=== PATIENT | female | born 1980 | race African-American/Black ===

== ENCOUNTER 2017-01-15 08:23 | Inpatient (IN) | payer MEDICAID ==
[~2017-01-15] VITALS: Ht 162.6 cm; Wt 77.0 kg
[2017-01-15] MEDS ORDERED: LORazepam 2 MG/ML, 1ML ONE (08:59)
[2017-01-15] MEDS ORDERED: SODIUM CHLORIDE 0.9% 1,000ML IVBOLUS ONE (09:00)
[2017-01-15] MEDS ORDERED: SODIUM CHLORIDE FLUSH 10ML SYR IVF ONE (09:00)
[2017-01-15] MEDS ORDERED: LORazepam 2 MG/ML, 1ML IVPush ONE (09:00)
[2017-01-15 09:17] LABS: HEMATOCRIT 34.3 % (34.6-47.8); HEMOGLOBIN 11.7 g/dL (11.7-16.4)
[2017-01-15 09:28] LABS: BLOOD UREA NITROGEN 9 mg/dL (7-18)
[2017-01-15 09:38] LABS: IS PT STATUS REG ER OR PRE ER? YES
[2017-01-15] MEDS ORDERED: OMNIPAQUE 350 MG/ML, 100ML BOTTLE ONE (09:55)
[2017-01-15] MEDS ORDERED: FUROSEMIDE 20 MG/2 ML ONE (11:42)
[2017-01-15] MEDS ORDERED: FUROSEMIDE 20 MG/2 ML IV ONE (12:00)
[2017-01-15 12:06] VITALS: BP 139/106
[2017-01-15] MEDS ORDERED: LISINOPRIL 5 MG TABLET PO ONE (12:30)
[2017-01-15 13:23] LABS: BLOOD UREA NITROGEN 8 mg/dL (7-18)
[2017-01-15] MEDS ORDERED: ACETAMINOPHEN 325 MG TABLET PO PRN (13:30)
[2017-01-15] MEDS ORDERED: hydrALAzine 20 MG/ML, 1ML IVPush PRN (13:30)
[2017-01-15] MEDS ORDERED: DOCUSATE 100 MG CAPSULE PO PRN (13:30)
[2017-01-15 15:03] LABS: DAU SCREEN DISCLAIMER
[2017-01-15 15:09] LABS: PATH.CAST-FLAG NOT PRESENT; SPERM-FLAG NOT PRESENT; SRC-FLAG NOT PRESENT; XTAL-FLAG NOT PRESENT; YLC-FLAG NOT PRESENT
[2017-01-15] MEDS ORDERED: CARVEDILOL 3.125 MG TABLET PO SCH (18:00)
[2017-01-16] MEDS ORDERED: FUROSEMIDE 20 MG/2 ML IV SCH (09:00)
== END 2017-01-15 15:12 | disposition left against medical advice (07) | DRG 776 ==
LOC: ED 09:07 → EDIP 11:54 → UNDOADMIN 12:25 → 5SO 14:06
PROVIDERS: ADMIT Family Medicine; ATTEND Family Medicine
DX: O99.43 Diseases of the circulatory system complicating the puerperium (principal); I50.21 Acute systolic (congestive) heart failure; O90.3 Peripartum cardiomyopathy; E87.2 Acidosis; E44.0 Moderate protein-calorie malnutrition; O99.325 Drug use complicating the puerperium; F12.90 Cannabis use, unspecified, uncomplicated; O99.335 Smoking (tobacco) complicating the puerperium; F17.200 Nicotine dependence, unspecified, uncomplicated; O99.285 Endocrine, nutritional and metabolic diseases complicating the puerperium; O90.89 Other complications of the puerperium, not elsewhere classified; O25.3 Malnutrition in the puerperium; R59.0 Localized enlarged lymph nodes; Z82.49 Family history of ischemic heart disease and other diseases of the circulatory system; Z98.51 Tubal ligation status; Z68.29 Body mass index [BMI] 29.0-29.9, adult
CPT/HCPCS: 36415; 71275; 80048; 80307; 81001; 82040; 83735; 83880; 84436; 84443; 84481; 84484; 85025; 87086; 93005; 93306; 96361; 96374; 96375; Q9967; G0479; J1940; J2060; J7030

== ENCOUNTER 2017-01-18 05:24 | Emergency (ER) | payer MEDICAID ==
[~2017-01-18] VITALS: Ht 162.6 cm; Wt 80.0 kg
[2017-01-18] MEDS ORDERED: CEPH-376 PO (06:07)
[2017-01-18 06:16] LABS: HEMOGLOBIN 12.1 g/dL (11.7-16.4); WHITE BLOOD COUNT 6.4 x10^3/uL (3.4-10)
[2017-01-18 06:23] LABS: BLOOD UREA NITROGEN 16 mg/dL (7-18)
[2017-01-18 06:31] LABS: IS PT STATUS REG ER OR PRE ER? YES
[2017-01-18 08:03] VITALS: BP 128/98
== END 2017-01-18 08:06 | disposition home or self-care (01) ==
LOC: ED 05:41
DX: O90.3 Peripartum cardiomyopathy (principal); O99.335 Smoking (tobacco) complicating the puerperium; F17.200 Nicotine dependence, unspecified, uncomplicated
CPT/HCPCS: 36415; 71010; 80048; 82040; 83880; 84484; 85025; 93005; 99285

== ENCOUNTER 2017-01-24 01:32 | Emergency (ER) | payer MEDICAID ==
[~2017-01-24] VITALS: Ht 162.6 cm; Wt 77.0 kg
[~2017-01-24 01:32] MED LIST: CEPH-376 PO
[2017-01-24] MEDS ORDERED: CARV3.1212 PO ×2 (01:37→10:03)
[2017-01-24] MEDS ORDERED: LISI2.5T PO (01:37)
[2017-01-24] MEDS ORDERED: FURO40TA6 PO (01:43)
[2017-01-24] MEDS ORDERED: POTA20PA25 PO (01:51)
[2017-01-24 02:05] LABS: HEMATOCRIT 34.9 % (34.6-47.8); HEMOGLOBIN 11.8 g/dL (11.7-16.4); WHITE BLOOD COUNT 7.1 x10^3/uL (3.4-10)
[2017-01-24 02:12] LABS: ASPARTATE AMINO TRANSFERASE 33 U/L (15-37); BLOOD UREA NITROGEN 20 mg/dL (7-18)
[2017-01-24 02:16] LABS: IS PT STATUS REG ER OR PRE ER? YES
[2017-01-24] MEDS ORDERED: FUROSEMIDE 40 MG/4 ML IV ONE ×2 (02:30→09:30)
[2017-01-24] MEDS ORDERED: FUROSEMIDE 40 MG/4 ML ONE ×3 (02:31→09:49)
[2017-01-24] MEDS ORDERED: ENOXAPARIN 40 MG/0.4 ML SQ SCH (04:00)
[2017-01-24] MEDS ORDERED: ACETAMINOPHEN 325 MG TABLET PO PRN (04:00)
[2017-01-24] MEDS ORDERED: ZOLPIDEM 5MG TABLET PO PRN (04:00)
[2017-01-24] MEDS ORDERED: hydrALAzine 20 MG/ML, 1ML IVPush PRN (04:00)
[2017-01-24] MEDS ORDERED: ONDANSETRON 2MG/ML, 2ML IVPush PRN (04:00)
[2017-01-24] MEDS ORDERED: morphine SULFATE 10 MG/ML, 1ML IVPush PRN (04:00)
[2017-01-24] MEDS ORDERED: ENOXAPARIN 40 MG/0.4 ML ONE (04:49)
[2017-01-24 05:12] VITALS: BP 124/89
[2017-01-24 08:18] LABS: IS PT STATUS REG ER OR PRE ER? YES
[2017-01-24] MEDS ORDERED: SODIUM CHLORIDE FLUSH 10ML SYR IVF SCH (09:00)
[2017-01-24] MEDS ORDERED: LISINOPRIL 5 MG TABLET PO SCH (09:00)
[2017-01-24] MEDS ORDERED: POTASSIUM CHLORIDE 20 MEQ PACKET PO SCH (09:00)
[2017-01-24] MEDS ORDERED: CARVEDILOL 3.125 MG TABLET PO SCH (09:00)
[2017-01-24] MEDS ORDERED: FUROSEMIDE 40 MG TABLET PO SCH (09:00)
[2017-01-24] MEDS ORDERED: POTASSIUM CHLORIDE 20 MEQ TAB.ER.PRT PO ONE (09:30)
[2017-01-24] MEDS ORDERED: POTASSIUM CHLORIDE 20 MEQ TAB.ER.PRT ONE (09:50)
[2017-01-24] MEDS ORDERED: CARVEDILOL 3.125 MG TABLET PO ONE (12:00)
[2017-01-24] MEDS ORDERED: CARVEDILOL 6.25 MG TABLET PO SCH (21:00)
[2017-01-25] MEDS ORDERED: LISINOPRIL 5 MG TABLET PO SCH (09:00)
== END 2017-01-24 11:57 | disposition home or self-care (01) ==
LOC: ED 01:49 → EDIP 02:37 → UNDOADMIN 02:37 → ED 11:57
DX: I50.9 Heart failure, unspecified (principal); Z53.9 Procedure and treatment not carried out, unspecified reason
CPT/HCPCS: 36415; 71010; 80053; 83880; 84484; 85025; 93005; 96372; 96374; 96376; 99285; J1650; J1940

== ENCOUNTER 2017-03-12 05:07 | Emergency (ER) | payer MEDICAID ==
[~2017-03-12] VITALS: Ht 165.1 cm; Wt 78.0 kg
[~2017-03-12 05:07] MED LIST changes: +CARV3.1212 PO; +FURO40TA6 PO; +LISI2.5T PO; +POTA20PA25 PO
[2017-03-12 05:10] VITALS: BP 128/86
[2017-03-12 05:55] LABS: RAPID INFLUENZA A Negative (Negative); RAPID INFLUENZA B Negative (Negative)
[2017-03-12] MEDS ORDERED: HYDROmorphone 2 MG/ML, 1ML ONE (06:34)
== END 2017-03-12 06:43 | disposition home or self-care (01) ==
LOC: ED 06:09
DX: B96.89 Other specified bacterial agents as the cause of diseases classified elsewhere (principal); J20.8 Acute bronchitis due to other specified organisms; I50.9 Heart failure, unspecified; I11.0 Hypertensive heart disease with heart failure
CPT/HCPCS: 71045; 87400; 99285

== ENCOUNTER 2017-03-19 02:39 | Emergency (ER) | payer MEDICAID ==
[~2017-03-19] VITALS: Ht 152.4 cm; Wt 78.0 kg
[2017-03-19] MEDS ORDERED: SODIUM CHLORIDE FLUSH 10ML SYR IVF ONE (03:00)
[2017-03-19] MEDS ORDERED: LORazepam 1MG TABLET ONE ×2 (03:21→04:08)
[2017-03-19 03:25] LABS: BASOPHILS # (AUTO) 0.21 x10^3/uL (0-0.1); BASOPHILS % (AUTO) 3 % (0-1); EOSINOPHILS # (AUTO) 0.03 x10^3/uL (0-0.4); EOSINOPHILS % (AUTO) 0 % (1-7); LYMPHOCYTES # (AUTO) 2.58 x10^3/uL (1-3.4); LYMPHOCYTES % (AUTO) 31 % (22-44); MD NO; MEAN CORPUSCULAR HEMOGLOBIN 30.4 pg (27.0-34.8); MEAN CORPUSCULAR HGB CONC 33.3 g/dL (32.4-35.8); MEAN CORPUSCULAR VOLUME 91.5 fL (80-100); MEAN PLATELET VOLUME 9.5 fL (7.4-10.4); MONOCYTES # (AUTO) 0.54 x10^3/uL (0.2-0.8); MONOCYTES % (AUTO) 7 % (2-9); NEUTROPHILS # (AUTO) 4.89 x10^3/uL (1.8-6.8); NEUTROPHILS % (AUTO) 59 % (42-75); PLATELET COUNT 415 x10^3/uL (130-400); RED BLOOD COUNT 3.94 x10^6/uL (3.82-5.3); RED CELL DISTRIBUTION WIDTH 17.2 % (9.6-15.2)
[2017-03-19] MEDS ORDERED: LORazepam 1MG TABLET PO ONE ×2 (03:30→04:00)
[2017-03-19 03:32] LABS: ALANINE AMINOTRANSFERASE 122 U/L (12-78); ALBUMIN 2.9 g/dL (3.4-5.0); ANION GAP 9 mmol/L (5-15); CALCIUM 8.2 mg/dL (8.5-10.1); CHLORIDE 108 mmol/L (98-107); CREATININE 1.16 mg/dL (0.55-1.02)
[2017-03-19 03:36] LABS: ALKALINE PHOSPHATASE 113 U/L (45-117); BILIRUBIN,TOTAL 0.8 mg/dL (0.2-1.0); TOTAL PROTEIN 6.6 g/dL (6.4-8.2)
[2017-03-19 03:54] LABS: TROPONIN I 0.275 ng/mL (0.000-0.045)
[2017-03-19] MEDS ORDERED: FUROSEMIDE 20 MG/2 ML IV ONE (04:00)
[2017-03-19] MEDS ORDERED: ASPIRIN 81 MG TABLET CHEW PO ONE (04:00)
[2017-03-19] MEDS ORDERED: ASPIRIN 81 MG TABLET CHEW ONE (04:08)
[2017-03-19] MEDS ORDERED: FUROSEMIDE 20 MG/2 ML ONE ×2 (04:08→10:11)
[2017-03-19] MEDS ORDERED: GUAIFENESIN/DM 200-20MG, 10ML UDC PO PRN (05:30)
[2017-03-19] MEDS ORDERED: ACETAMINOPHEN 325 MG TABLET PO PRN (05:30)
[2017-03-19] MEDS ORDERED: ENOXAPARIN 40 MG/0.4 ML SQ SCH (05:30)
[2017-03-19] MEDS ORDERED: methylPREDNISolone SOD SUCC 40 MG/ML IV SCH (05:30)
[2017-03-19] MEDS ORDERED: ONDANSETRON 2MG/ML, 2ML IVPush PRN (05:30)
[2017-03-19 06:06] LABS: TROPONIN I 0.236 ng/mL (0.000-0.045)
[2017-03-19] MEDS ORDERED: FUROSEMIDE 20 MG/2 ML IV SCH (07:30)
[2017-03-19 09:00] VITALS: BP 127/96
[2017-03-19] MEDS ORDERED: CARVEDILOL 6.25 MG TABLET PO SCH (09:00)
[2017-03-19] MEDS ORDERED: SPIRONOLACTONE 25 MG TABLET PO SCH (09:00)
[2017-03-19] MEDS ORDERED: LISINOPRIL 5 MG TABLET PO SCH (09:00)
[2017-03-19] MEDS ORDERED: ENOXAPARIN 40 MG/0.4 ML ONE (10:11)
== END 2017-03-19 11:06 | disposition left against medical advice (07) ==
LOC: ED 03:37 → EDIP 03:54 → UNDOADMIN 03:54 → ED 11:06
DX: I50.21 Acute systolic (congestive) heart failure (principal); I21.9 Acute myocardial infarction, unspecified; J40 Bronchitis, not specified as acute or chronic; F41.9 Anxiety disorder, unspecified; Z87.891 Personal history of nicotine dependence; Z91.14 Patient's other noncompliance with medication regimen
CPT/HCPCS: 36415; 71045; 80053; 83880; 84484; 85025; 93005; 93306; 96372; 96374; 96376; 99285; J1650; J1940

== ENCOUNTER 2017-05-21 14:21 | Emergency (ER) | payer MEDICAID ==
[~2017-05-21] VITALS: Ht 162.6 cm; Wt 77.1 kg
[2017-05-21] MEDS ORDERED: SODIUM CHLORIDE FLUSH 10ML SYR IVF ONE (15:00)
[2017-05-21 15:48] LABS: ALBUMIN 2.7 g/dL (3.4-5.0); ANION GAP 10 mmol/L (5-15); CALCIUM 8.2 mg/dL (8.5-10.1); CHLORIDE 107 mmol/L (98-107)
[2017-05-21 15:54] LABS: ALANINE AMINOTRANSFERASE 128 U/L (12-78); ALKALINE PHOSPHATASE 83 U/L (45-117); BASOPHILS # (AUTO) 0.05 x10^3/uL (0-0.1); BASOPHILS % (AUTO) 1 % (0-1); BILIRUBIN,TOTAL 1.3 mg/dL (0.2-1.0); CREATININE 1.25 mg/dL (0.55-1.02); EOSINOPHILS # (AUTO) 0.03 x10^3/uL (0-0.4); EOSINOPHILS % (AUTO) 0 % (1-7); LYMPHOCYTES % (AUTO) 36 % (22-44); MD MORPH REVIEW ONLY; MEAN CORPUSCULAR HEMOGLOBIN 29.1 pg (27.0-34.8); MEAN CORPUSCULAR HGB CONC 32.8 g/dL (32.4-35.8); MEAN CORPUSCULAR VOLUME 88.7 fL (80-100); MONOCYTES # (AUTO) 0.32 x10^3/uL (0.2-0.8); MONOCYTES % (AUTO) 5 % (2-9); NEUTROPHILS # (AUTO) 3.48 x10^3/uL (1.8-6.8); NEUTROPHILS % (AUTO) 57 % (42-75); PLATELET COUNT 240 x10^3/uL (130-400); RED BLOOD COUNT 3.67 x10^6/uL (3.82-5.3); RED CELL DISTRIBUTION WIDTH 19.5 % (9.6-15.2); TOTAL PROTEIN 6.3 g/dL (6.4-8.2); TROPONIN I 0.025 ng/mL (0.000-0.045)
[2017-05-21 15:58] LABS: ANISOCYTOSIS 2+; MICROCYTOSIS 1+; POLYCHROMASIA 1+
[2017-05-21 15:59] LABS: <PLATELET ESTIMATE> ADEQUATE; LARGE PLATELETS 1+; OVALOCYTES 3+; SCHISTOCYTES 1+
[2017-05-21 16:00] LABS: SPHEROCYTES 1+
[2017-05-21] MEDS ORDERED: LORazepam 1MG TABLET ONE (16:50)
[2017-05-21] MEDS ORDERED: LORazepam 1MG TABLET PO ONE (17:00)
[2017-05-21 17:21] VITALS: BP 135/89
== END 2017-05-21 17:23 | disposition home or self-care (01) ==
LOC: ED 15:32
DX: I50.32 Chronic diastolic (congestive) heart failure (principal); R60.0 Localized edema; F41.9 Anxiety disorder, unspecified; I25.2 Old myocardial infarction; F17.210 Nicotine dependence, cigarettes, uncomplicated
CPT/HCPCS: 36415; 71046; 80053; 83880; 84484; 85025; 93005; 99285

== ENCOUNTER 2017-08-12 03:19 | Emergency (ER) | payer MEDICAID ==
[~2017-08-12] VITALS: Ht 162.6 cm; Wt 70.0 kg
[2017-08-12] MEDS ORDERED: SODIUM CHLORIDE FLUSH 10ML SYR IVF ONE (04:00)
[2017-08-12 04:12] LABS: ALBUMIN 2.8 g/dL (3.4-5.0); ANION GAP 10 mmol/L (5-15); CALCIUM 8.7 mg/dL (8.5-10.1); CHLORIDE 108 mmol/L (98-107)
[2017-08-12 04:15] LABS: MEAN CORPUSCULAR VOLUME 90.8 fL (80-100); MEAN PLATELET VOLUME 10.2 fL (7.4-10.4); PLATELET COUNT 261 x10^3/uL (130-400); RED BLOOD COUNT 4.26 x10^6/uL (3.82-5.3); RED CELL DISTRIBUTION WIDTH 21.5 % (9.6-15.2)
[2017-08-12 04:18] LABS: ALANINE AMINOTRANSFERASE 31 U/L (12-78); ALKALINE PHOSPHATASE 88 U/L (45-117); BILIRUBIN,TOTAL 2.1 mg/dL (0.2-1.0); TOTAL PROTEIN 7.2 g/dL (6.4-8.2); TROPONIN I < 0.015 ng/mL (0.000-0.045)
[2017-08-12] MEDS ORDERED: FUROSEMIDE 40 MG/4 ML IV ONE (04:30)
[2017-08-12] MEDS ORDERED: FUROSEMIDE 40 MG TABLET ONE (04:36)
[2017-08-12] MEDS ORDERED: FUROSEMIDE 20 MG TABLET ONE (04:36)
[2017-08-12 04:41] LABS: BASOPHILS # (AUTO) 0.17 x10^3/uL (0-0.1); BASOPHILS % (AUTO) 2 % (0-1); EOSINOPHILS # (AUTO) 0.12 x10^3/uL (0-0.4); EOSINOPHILS % (AUTO) 2 % (1-7); LYMPHOCYTES # (AUTO) 2.62 x10^3/uL (1-3.4); LYMPHOCYTES % (AUTO) 36 % (22-44); MD SCAN; MONOCYTES # (AUTO) 0.26 x10^3/uL (0.2-0.8); MONOCYTES % (AUTO) 4 % (2-9); NEUTROPHILS # (AUTO) 4.12 x10^3/uL (1.8-6.8); NEUTROPHILS % (AUTO) 57 % (42-75)
[2017-08-12] MEDS ORDERED: FUROSEMIDE 40 MG TABLET PO SCH (05:00)
[2017-08-12 05:20] VITALS: BP 124/76
== END 2017-08-12 05:24 | disposition home or self-care (01) ==
LOC: ED 04:10
DX: I50.22 Chronic systolic (congestive) heart failure (principal); I11.0 Hypertensive heart disease with heart failure; I25.2 Old myocardial infarction; I42.9 Cardiomyopathy, unspecified; Z72.89 Other problems related to lifestyle; Z91.14 Patient's other noncompliance with medication regimen; Z60.9 Problem related to social environment, unspecified
CPT/HCPCS: 36415; 71045; 80053; 83880; 84484; 84703; 85025; 93005; 99285

== ENCOUNTER 2017-12-15 07:42 | Emergency (ER) | payer MEDICAID ==
[~2017-12-15] VITALS: Ht 162.6 cm; Wt 61.3 kg
[2017-12-15] MEDS ORDERED: ONDANSETRON 2MG/ML, 2ML IVPush ONE (08:00)
[2017-12-15] MEDS ORDERED: MORPHINE SULFATE 4 MG/ML, 1ML IVPush PRN (08:00)
[2017-12-15] MEDS ORDERED: ONDANSETRON 2MG/ML, 2ML ONE (08:11)
[2017-12-15] MEDS ORDERED: MORPHINE SULFATE 4 MG/ML, 1ML ONE (08:12)
[2017-12-15 08:21] LABS: BASOPHILS # (AUTO) 0.19 x10^3/uL (0-0.1); BASOPHILS % (AUTO) 3 % (0-1); EOSINOPHILS # (AUTO) 0.02 x10^3/uL (0-0.4); EOSINOPHILS % (AUTO) 0 % (1-7); LYMPHOCYTES # (AUTO) 1.25 x10^3/uL (1-3.4); LYMPHOCYTES % (AUTO) 19 % (22-44); MD NO; MEAN CORPUSCULAR HGB CONC 31.8 g/dL (32.4-35.8); MEAN CORPUSCULAR VOLUME 88.1 fL (80-100); MEAN PLATELET VOLUME 9.6 fL (7.4-10.4); MONOCYTES # (AUTO) 0.28 x10^3/uL (0.2-0.8); MONOCYTES % (AUTO) 4 % (2-9); NEUTROPHILS # (AUTO) 4.72 x10^3/uL (1.8-6.8); NEUTROPHILS % (AUTO) 73 % (42-75); PLATELET COUNT 350 x10^3/uL (130-400); RED BLOOD COUNT 4.21 x10^6/uL (3.82-5.3); RED CELL DISTRIBUTION WIDTH 21.5 % (9.6-15.2)
[2017-12-15 08:31] LABS: ALANINE AMINOTRANSFERASE 24 U/L (12-78); ALBUMIN 3.1 g/dL (3.4-5.0); ANION GAP 10 mmol/L (5-15); CALCIUM 8.9 mg/dL (8.5-10.1); CHLORIDE 108 mmol/L (98-107); CREATININE 0.99 mg/dL (0.55-1.02)
[2017-12-15 08:35] LABS: ALKALINE PHOSPHATASE 112 U/L (45-117); TOTAL PROTEIN 7.5 g/dL (6.4-8.2); TROPONIN I 0.017 ng/mL (0.000-0.045)
[2017-12-15] MEDS ORDERED: DICYCLOMINE 10 MG/ML, 2ML IM ONE (09:00)
[2017-12-15] MEDS ORDERED: FUROSEMIDE 40 MG/4 ML ONE (09:39)
[2017-12-15] MEDS ORDERED: DICYCLOMINE 10 MG/ML, 2ML ONE (09:39)
[2017-12-15] MEDS ORDERED: FUROSEMIDE 40 MG/4 ML IV ONE (10:00)
[2017-12-15 10:18] LABS: HCG UR SG 1.032 (1.003-1.030)
[2017-12-15 10:23] LABS: CULTURE INDICATED? YES; MICROSCOPIC INDICATED
[2017-12-15] MEDS ORDERED: CEFTRIAXONE PMX 1GM/50ML 50 ML IV ONE (11:30)
[2017-12-15] MEDS ORDERED: CEFTRIAXONE PMX 1GM/50ML 50 ML ONE (12:10)
[2017-12-15 12:34] VITALS: BP 131/98
== END 2017-12-15 12:37 | disposition home or self-care (01) ==
LOC: ED 09:41
DX: N30.00 Acute cystitis without hematuria (principal); R10.84 Generalized abdominal pain; R11.2 Nausea with vomiting, unspecified; R19.7 Diarrhea, unspecified; Z87.891 Personal history of nicotine dependence; I25.2 Old myocardial infarction; I11.0 Hypertensive heart disease with heart failure; I50.9 Heart failure, unspecified; F41.1 Generalized anxiety disorder
CPT/HCPCS: 36415; 71045; 80053; 81001; 81025; 83690; 84484; 85025; 87086; 96365; 96372; 96375; 99285; J0500; J0696; J1940; J2405

== ENCOUNTER 2017-12-23 01:20 | Emergency (ER) | payer MEDICAID ==
[~2017-12-23] VITALS: Ht 162.6 cm; Wt 60.0 kg
[2017-12-23] MEDS ORDERED: ACETAMINOPHEN 325 MG TABLET ONE ×2 (01:46→02:26)
[2017-12-23] MEDS ORDERED: FUROSEMIDE 20 MG TABLET ONE (01:46)
[2017-12-23] MEDS ORDERED: ONDANSETRON ODT 4 MG ONE (01:46)
[2017-12-23] MEDS: ACETAMINOPHEN 325 MG TABLET PO ONE ×2 (01:48→01:50)
[2017-12-23 02:00] VITALS: BP 128/88
[2017-12-23] MEDS ORDERED: ONDANSETRON ODT 4 MG PO ONE (02:00)
[2017-12-23] MEDS ORDERED: FUROSEMIDE 40 MG TABLET PO ONE (02:00)
[2017-12-23 02:05] LABS: MEAN CORPUSCULAR HEMOGLOBIN 28.9 pg (27.0-34.8); MEAN CORPUSCULAR HGB CONC 32.4 g/dL (32.4-35.8); MEAN CORPUSCULAR VOLUME 89.4 fL (80-100); MEAN PLATELET VOLUME 10.2 fL (7.4-10.4); PLATELET COUNT 323 x10^3/uL (130-400); RED BLOOD COUNT 4.26 x10^6/uL (3.82-5.3); RED CELL DISTRIBUTION WIDTH 22.3 % (9.6-15.2)
[2017-12-23 02:07] LABS: ALANINE AMINOTRANSFERASE 32 U/L (12-78); ALBUMIN 3.2 g/dL (3.4-5.0); ANION GAP 13 mmol/L (5-15); CALCIUM 8.3 mg/dL (8.5-10.1); CHLORIDE 108 mmol/L (98-107); CREATININE 1.01 mg/dL (0.55-1.02)
[2017-12-23 02:11] LABS: ALKALINE PHOSPHATASE 136 U/L (45-117); BILIRUBIN,TOTAL 2.4 mg/dL (0.2-1.0); TOTAL PROTEIN 8.1 g/dL (6.4-8.2); TROPONIN I 0.019 ng/mL (0.000-0.045)
[2017-12-23 02:24] LABS: BASOPHILS # (AUTO) 0.05 x10^3/uL (0-0.1); BASOPHILS % (AUTO) 1 % (0-1); EOSINOPHILS # (AUTO) 0.02 x10^3/uL (0-0.4); EOSINOPHILS % (AUTO) 0 % (1-7); LYMPHOCYTES # (AUTO) 1.48 x10^3/uL (1-3.4); LYMPHOCYTES % (AUTO) 21 % (22-44); MD SCAN; MONOCYTES # (AUTO) 0.38 x10^3/uL (0.2-0.8); MONOCYTES % (AUTO) 5 % (2-9); NEUTROPHILS # (AUTO) 5.15 x10^3/uL (1.8-6.8); NEUTROPHILS % (AUTO) 73 % (42-75)
[2017-12-23] MEDS ORDERED: ACETAMINOPHEN 325 MG TABLET PO ONE (02:30)
== END 2017-12-23 02:44 | disposition home or self-care (01) ==
LOC: ED 02:38
DX: I11.0 Hypertensive heart disease with heart failure (principal); Z91.19 Patient's noncompliance with other medical treatment and regimen; I25.2 Old myocardial infarction; E78.5 Hyperlipidemia, unspecified; E11.9 Type 2 diabetes mellitus without complications; Z87.891 Personal history of nicotine dependence
CPT/HCPCS: 36415; 71045; 80053; 83690; 83880; 84484; 85025; 93005; 99285; Q0162

== ENCOUNTER 2018-01-14 01:25 | Emergency (ER) | payer MEDICAID ==
[~2018-01-14] VITALS: Ht 167.6 cm; Wt 72.0 kg
[2018-01-14] MEDS ORDERED: ALBUTEROL/IPRATROPIUM 2.5MG/0.5MG, 3 ML ONE (01:44)
[2018-01-14] MEDS ORDERED: ASPIRIN 81 MG TABLET CHEW ONE (01:44)
[2018-01-14] MEDS ORDERED: ALBUTEROL/IPRATROPIUM 2.5MG/0.5MG, 3 ML NPPB ONE (02:00)
[2018-01-14] MEDS ORDERED: ASPIRIN 81 MG TABLET CHEW PO ONE (02:00)
[2018-01-14 02:08] LABS: MEAN CORPUSCULAR HEMOGLOBIN 28.5 pg (27.0-34.8); MEAN CORPUSCULAR HGB CONC 32.1 g/dL (32.4-35.8); MEAN CORPUSCULAR VOLUME 88.9 fL (80-100); MEAN PLATELET VOLUME 10.2 fL (7.4-10.4); PLATELET COUNT 339 x10^3/uL (130-400); RED BLOOD COUNT 3.99 x10^6/uL (3.82-5.3); RED CELL DISTRIBUTION WIDTH 22.7 % (9.6-15.2)
[2018-01-14 02:09] LABS: ANION GAP 8 mmol/L (5-15); CALCIUM 8.3 mg/dL (8.5-10.1); CHLORIDE 110 mmol/L (98-107); CREATININE 1.03 mg/dL (0.55-1.02)
[2018-01-14 02:10] LABS: ALANINE AMINOTRANSFERASE 28 U/L (12-78)
[2018-01-14 02:14] LABS: ALKALINE PHOSPHATASE 123 U/L (45-117); BILIRUBIN,TOTAL 2.4 mg/dL (0.2-1.0); TROPONIN I 0.044 ng/mL (0.000-0.045)
[2018-01-14 02:34] LABS: BASOPHILS # (AUTO) 0.06 x10^3/uL (0-0.1); BASOPHILS % (AUTO) 1 % (0-1); EOSINOPHILS % (AUTO) 0 % (1-7); LYMPHOCYTES # (AUTO) 1.21 x10^3/uL (1-3.4); LYMPHOCYTES % (AUTO) 21 % (22-44); MD MORPH REVIEW ONLY; MONOCYTES # (AUTO) 0.29 x10^3/uL (0.2-0.8); MONOCYTES % (AUTO) 5 % (2-9); NEUTROPHILS # (AUTO) 4.33 x10^3/uL (1.8-6.8); NEUTROPHILS % (AUTO) 73 % (42-75)
[2018-01-14 02:35] LABS: ANISOCYTOSIS 2+; MICROCYTOSIS 1+; OVALOCYTES 2+; POLYCHROMASIA 1+
[2018-01-14 02:36] LABS: SCHISTOCYTES 1+
[2018-01-14 02:42] LABS: <PLATELET ESTIMATE> ADEQUATE; LARGE PLATELETS 1+
[2018-01-14 03:12] VITALS: BP 139/88
== END 2018-01-14 03:14 | disposition home or self-care (01) ==
LOC: ED 01:37
DX: R07.9 Chest pain, unspecified (principal); R06.00 Dyspnea, unspecified; R79.89 Other specified abnormal findings of blood chemistry; I25.2 Old myocardial infarction; F41.1 Generalized anxiety disorder; I42.9 Cardiomyopathy, unspecified; I11.0 Hypertensive heart disease with heart failure; I50.9 Heart failure, unspecified; Z72.9 Problem related to lifestyle, unspecified; Z87.448 Personal history of other diseases of urinary system; Z87.19 Personal history of other diseases of the digestive system
CPT/HCPCS: 36415; 71045; 80053; 83880; 84484; 84703; 85025; 93005; 94640; 99284; J7620

== ENCOUNTER 2018-01-16 10:24 | Emergency (ER) | payer MEDICAID ==
[~2018-01-16] VITALS: Ht 162.6 cm; Wt 68.8 kg
[2018-01-16] MEDS ORDERED: ASPIRIN 81 MG TABLET CHEW ONE (11:21)
[2018-01-16] MEDS ORDERED: ASPIRIN 81 MG TABLET CHEW PO ONE (11:30)
[2018-01-16 11:51] LABS: ALBUMIN 2.9 g/dL (3.4-5.0); ANION GAP 8 mmol/L (5-15); CALCIUM 9.1 mg/dL (8.5-10.1); CHLORIDE 108 mmol/L (98-107); CREATININE 0.99 mg/dL (0.55-1.02)
[2018-01-16 11:55] LABS: TROPONIN I 0.033 ng/mL (0.000-0.045)
[2018-01-16 12:33] LABS: MD YES
[2018-01-16 12:36] LABS: MEAN CORPUSCULAR HEMOGLOBIN 28.5 pg (27.0-34.8); MEAN CORPUSCULAR HGB CONC 32.1 g/dL (32.4-35.8); MEAN CORPUSCULAR VOLUME 88.8 fL (80-100); MEAN PLATELET VOLUME 9.8 fL (7.4-10.4); PLATELET COUNT 309 x10^3/uL (130-400); RED BLOOD COUNT 3.89 x10^6/uL (3.82-5.3); RED CELL DISTRIBUTION WIDTH 23.2 % (9.6-15.2)
[2018-01-16 13:01] LABS: BASOS#(MANUAL) 0.12 x10^3/uL (0-0.1); BASOS% (MANUAL) 2 % (0-1); EOS#(MANUAL) 0.23 x10^3/uL (0.0-0.4); EOS% (MANUAL) 4 % (1-7); LYMPH#(MANUAL) 1.39 x10^3/uL (1-3.4); LYMPHS% (MANUAL) 24 % (22-44); MONOS#(MANUAL) 0.29 x10^3/uL (0.3-2.7); MONOS% (MANUAL) 5 % (2-9); SEG#(MANUAL) 3.77 x10^3/uL (1.8-6.8); SEGS% (MANUAL) 65 % (42-75)
[2018-01-16 13:03] LABS: ANISOCYTOSIS 2+; MICROCYTOSIS 1+; OVALOCYTES 2+; SCHISTOCYTES 1+
[2018-01-16 13:04] LABS: <PLATELET ESTIMATE> ADEQUATE; <PLT MORPHOLOGY> NORMAL PLT MORPH; TEAR DROPS 1+
[2018-01-16 13:06] LABS: POLYCHROMASIA 1+
[2018-01-16 13:28] VITALS: BP 127/80
== END 2018-01-16 13:32 | disposition home or self-care (01) ==
LOC: ED 12:14
DX: R06.00 Dyspnea, unspecified (principal); I42.9 Cardiomyopathy, unspecified; I25.2 Old myocardial infarction; I50.9 Heart failure, unspecified
CPT/HCPCS: 36415; 71046; 80048; 82040; 83880; 84484; 85025; 93005; 99284

== ENCOUNTER 2018-02-17 07:44 | Inpatient (IN) | payer MEDICAID ==
[~2018-02-17] VITALS: Ht 162.6 cm; Wt 72.1 kg
[2018-02-17] MEDS ORDERED: ONDANSETRON 2MG/ML, 2ML IVPush ONE (08:30)
[2018-02-17] MEDS ORDERED: MORPHINE SULFATE 4 MG/ML, 1ML IVPush PRN (08:30)
[2018-02-17] MEDS ORDERED: SODIUM CHLORIDE FLUSH 10ML SYR IVF ONE (08:30)
[2018-02-17] MEDS ORDERED: ONDANSETRON 2MG/ML, 2ML ONE (08:33)
[2018-02-17] MEDS ORDERED: MORPHINE SULFATE 4 MG/ML, 1ML ONE (08:34)
[2018-02-17 08:45] LABS: INTERNATIONAL NORMALIZED RATIO 1.43 (0.93-1.1)
[2018-02-17 08:46] LABS: ALANINE AMINOTRANSFERASE 25 U/L (12-78); ANION GAP 11 mmol/L (5-15); CALCIUM 8.2 mg/dL (8.5-10.1); CHLORIDE 103 mmol/L (98-107); CREATININE 0.95 mg/dL (0.55-1.02)
[2018-02-17 08:52] LABS: ALKALINE PHOSPHATASE 103 U/L (45-117); TOTAL PROTEIN 7.9 g/dL (6.4-8.2)
[2018-02-17 08:59] LABS: MEAN CORPUSCULAR HEMOGLOBIN 28.7 pg (27.0-34.8); MEAN CORPUSCULAR HGB CONC 32.3 g/dL (32.4-35.8); MEAN CORPUSCULAR VOLUME 88.7 fL (80-100); PLATELET COUNT 246 x10^3/uL (130-400); RED BLOOD COUNT 3.82 x10^6/uL (3.82-5.3); RED CELL DISTRIBUTION WIDTH 22.7 % (9.6-15.2)
[2018-02-17 09:00] LABS: MD YES
--- NOTE | 2018-02-17 09:01 | NUR ---
pt upright on gurney awake & calm, responds approp to staff, NAD, comfort measures provided, son at BS, call light within reach.
[2018-02-17 09:02] LABS: EOS#(MANUAL) 0.05 x10^3/uL (0.0-0.4); EOS% (MANUAL) 1 % (1-7); LYMPH#(MANUAL) 1.48 x10^3/uL (1-3.4); LYMPHS% (MANUAL) 28 % (22-44); MONOS#(MANUAL) 0.11 x10^3/uL (0.3-2.7); MONOS% (MANUAL) 2 % (2-9); SEG#(MANUAL) 3.66 x10^3/uL (1.8-6.8); SEGS% (MANUAL) 69 % (42-75)
[2018-02-17 09:03] LABS: ANISOCYTOSIS 2+; MICROCYTOSIS 1+; POLYCHROMASIA 1+; SCHISTOCYTES 1+
[2018-02-17 09:04] LABS: OVALOCYTES 3+
[2018-02-17 09:05] LABS: <PLATELET ESTIMATE> ADEQUATE; LARGE PLATELETS 1+
[2018-02-17] MEDS ORDERED: ASPI-496 PO (09:18)
[2018-02-17] MEDS ORDERED: ASPIRIN 81 MG TABLET CHEW PO ONE (09:30)
[2018-02-17] MEDS ORDERED: ASPIRIN 81 MG TABLET CHEW ONE (09:53)
--- NOTE | 2018-02-17 09:59 | NUR ---
US at BS. pt remains upright on gurney awake & calm, responds approp to staff, NAD, comfort measures provided, son at BS, call light within reach. unable to obtain PIV access, awaiting other staff for attempt- PA aware.
--- NOTE | 2018-02-17 10:51 | NUR ---
pt upright on gurney awake & calm, responds approp to staff, NAD, comfort measures provided, son at BS, call light within reach.
--- NOTE | 2018-02-17 11:14 | NUR ---
Pt to be admitted to card-tele, room 505. Report called to Becky.
[2018-02-17 11:47] VITALS: BP 117/84
[2018-02-17] MEDS ORDERED: SPIR25TA5 PO (11:52)
[2018-02-17] MEDS ORDERED: LABETALOL 5MG/ML, 20ML IVPush PRN (12:00)
[2018-02-17] MEDS ORDERED: ONDANSETRON 2MG/ML, 2ML IVPush PRN (12:00)
[2018-02-17] MEDS ORDERED: ACETAMINOPHEN 325 MG TABLET PO PRN (12:00)
[2018-02-17 13:12] VITALS: BP 117/83
[2018-02-17] MEDS ORDERED: DULO20CA45 PO (13:22)
[2018-02-17] MEDS: HEPARIN 5,000 UNITS/ML, 1ML SQ SCH ×2 (13:31→20:22)
[2018-02-17 14:27] LABS: MD YES; MEAN CORPUSCULAR HEMOGLOBIN 29.3 pg (27.0-34.8); MEAN CORPUSCULAR VOLUME 88.9 fL (80-100); MEAN PLATELET VOLUME 9.2 fL (7.4-10.4); PLATELET COUNT 198 x10^3/uL (130-400); RED BLOOD COUNT 3.66 x10^6/uL (3.82-5.3)
[2018-02-17 16:42] LABS: BASOS#(MANUAL) 0.05 x10^3/uL (0-0.1); BASOS% (MANUAL) 1 % (0-1); EOS% (MANUAL) 2 % (1-7); LYMPH#(MANUAL) 1.27 x10^3/uL (1-3.4); LYMPHS% (MANUAL) 26 % (22-44); MONOS#(MANUAL) 0.39 x10^3/uL (0.3-2.7); MONOS% (MANUAL) 8 % (2-9); SEG#(MANUAL) 3.09 x10^3/uL (1.8-6.8); SEGS% (MANUAL) 63 % (42-75)
[2018-02-17 16:46] LABS: MICROCYTOSIS 1+
[2018-02-17 16:47] LABS: OVALOCYTES 3+; POLYCHROMASIA 1+; SCHISTOCYTES 1+
[2018-02-17 16:50] LABS: <PLATELET ESTIMATE> ADEQUATE; TEAR DROPS 1+
[2018-02-17 16:51] LABS: LARGE PLATELETS 1+
[2018-02-17 16:54] LABS: RED CELL DISTRIBUTION WIDTH 22.8 % (9.6-15.2)
[2018-02-17] MEDS: FUROSEMIDE 40 MG/4 ML IV SCH (17:45)
[2018-02-17] MEDS: POTASSIUM CHLORIDE 20 MEQ TAB.ER.PRT PO SCH (17:45)
[2018-02-17 20:21] VITALS: BP 116/82
[2018-02-17] MEDS: ATORVASTATIN 80 MG TABLET PO SCH (20:22)
[2018-02-17] MEDS: CARVEDILOL 6.25 MG TABLET PO SCH (20:22)
[2018-02-17 20:25] LABS: TROPONIN I 0.788 ng/mL (0.000-0.045)
[2018-02-18 00:39] VITALS: BP 97/67
[2018-02-18] MEDS: HEPARIN 5,000 UNITS/ML, 1ML SQ SCH ×3 (04:57→20:48)
[2018-02-18 05:04] LABS: ALBUMIN 2.5 g/dL (3.4-5.0); ANION GAP 8 mmol/L (5-15); CALCIUM 7.5 mg/dL (8.5-10.1); CHLORIDE 105 mmol/L (98-107)
[2018-02-18 05:18] LABS: ALANINE AMINOTRANSFERASE 22 U/L (12-78); ALKALINE PHOSPHATASE 87 U/L (45-117); BILIRUBIN,TOTAL 3.6 mg/dL (0.2-1.0); CREATININE 1.19 mg/dL (0.55-1.02); TOTAL PROTEIN 6.7 g/dL (6.4-8.2)
[2018-02-18 06:55] VITALS: BP 105/79
[2018-02-18] MEDS: CARVEDILOL 6.25 MG TABLET PO SCH ×2 (07:38→20:47)
[2018-02-18] MEDS: DULOXETINE 20 MG CAPSULE.DR PO SCH (07:38)
[2018-02-18] MEDS: ASPIRIN 81 MG TABLET EC PO SCH (07:38)
[2018-02-18] MEDS: MAGNESIUM OXIDE 400 MG TABLET PO SCH ×2 (07:39→20:47)
[2018-02-18] MEDS: FUROSEMIDE 40 MG/4 ML IV SCH ×2 (07:39→17:35)
[2018-02-18] MEDS: SPIRONOLACTONE 25 MG TABLET PO SCH (07:39)
[2018-02-18] MEDS: POTASSIUM CHLORIDE 20 MEQ TAB.ER.PRT PO SCH ×2 (07:39→17:35)
[2018-02-18] MEDS ORDERED: PINK LADY ENEMA 490 ML BOTTLE PR ONE (08:30)
[2018-02-18] MEDS ORDERED: LISINOPRIL 5 MG TABLET PO SCH (09:00)
[2018-02-18] MEDS: LISINOPRIL 5 MG TABLET PO SCH (09:48)
[2018-02-18 12:09] VITALS: BP 98/79
[2018-02-18 12:35] LABS: AMPHETAMINE SCREEN, URINE Negative (Negative); BARBITURATE SCREEN, URINE Negative (Negative); BENZODIAZEPINE SCREEN, URINE Negative (Negative); CANNABINOID SCREEN, URINE Positive (Negative); COCAINE SCREEN, URINE Negative (Negative); METHADONE SCREEN, URINE Negative (Negative); OPIATE SCREEN, URINE Negative (Negative)
[2018-02-18] MEDS: OXYcodone IR 5MG TABLET PO PRN ×2 (13:54→20:47)
[2018-02-18 17:34] VITALS: BP 101/76
[2018-02-18 19:43] VITALS: BP 98/63
[2018-02-18] MEDS: ATORVASTATIN 80 MG TABLET PO SCH (20:47)
[2018-02-19 01:38] VITALS: BP 95/58
[2018-02-19 05:23] LABS: ALANINE AMINOTRANSFERASE 20 U/L (12-78); ALBUMIN 2.4 g/dL (3.4-5.0); ANION GAP 6 mmol/L (5-15); CHLORIDE 104 mmol/L (98-107); CREATININE 1.04 mg/dL (0.55-1.02)
[2018-02-19 05:25] LABS: ALKALINE PHOSPHATASE 92 U/L (45-117); BILIRUBIN,TOTAL 3.3 mg/dL (0.2-1.0); TOTAL PROTEIN 6.4 g/dL (6.4-8.2)
[2018-02-19] MEDS: HEPARIN 5,000 UNITS/ML, 1ML SQ SCH ×3 (06:30→21:14)
[2018-02-19 06:45] VITALS: BP 90/65
[2018-02-19] MEDS: MAGNESIUM OXIDE 400 MG TABLET PO SCH ×2 (10:33→20:08)
[2018-02-19] MEDS: DULOXETINE 20 MG CAPSULE.DR PO SCH (10:33)
[2018-02-19] MEDS: POTASSIUM CHLORIDE 20 MEQ TAB.ER.PRT PO SCH ×2 (10:33→17:30)
[2018-02-19] MEDS: LISINOPRIL 5 MG TABLET PO SCH (10:33)
[2018-02-19] MEDS: ASPIRIN 81 MG TABLET EC PO SCH (10:33)
[2018-02-19] MEDS: FUROSEMIDE 40 MG/4 ML IV SCH ×2 (10:33→17:30)
[2018-02-19] MEDS: CARVEDILOL 6.25 MG TABLET PO SCH ×2 (10:34→20:08)
[2018-02-19] MEDS: SPIRONOLACTONE 25 MG TABLET PO SCH (10:43)
[2018-02-19 12:17] VITALS: BP 100/70
[2018-02-19 19:11] VITALS: BP 92/62
[2018-02-19] MEDS: ATORVASTATIN 80 MG TABLET PO SCH (20:07)
[2018-02-19] MEDS: OXYcodone IR 5MG TABLET PO PRN (21:13)
[2018-02-20 01:35] VITALS: BP 98/74
[2018-02-20] MEDS: HEPARIN 5,000 UNITS/ML, 1ML SQ SCH (04:41)
[2018-02-20 06:50] VITALS: BP 99/69
[2018-02-20] MEDS: MAGNESIUM OXIDE 400 MG TABLET PO SCH (08:08)
[2018-02-20] MEDS: POTASSIUM CHLORIDE 20 MEQ TAB.ER.PRT PO SCH (08:08)
[2018-02-20] MEDS: DULOXETINE 20 MG CAPSULE.DR PO SCH (08:09)
[2018-02-20] MEDS: SPIRONOLACTONE 25 MG TABLET PO SCH (08:09)
[2018-02-20] MEDS: ASPIRIN 81 MG TABLET EC PO SCH (08:09)
[2018-02-20] MEDS: LISINOPRIL 5 MG TABLET PO SCH (08:09)
[2018-02-20] MEDS: CARVEDILOL 6.25 MG TABLET PO SCH (08:09)
[2018-02-20] MEDS: FUROSEMIDE 40 MG/4 ML IV SCH (08:10)
[2018-02-20] MEDS ORDERED: LISI5TAB7 PO (09:13)
[2018-02-20] MEDS ORDERED: FURO40TA6 PO (09:13)
[2018-02-20] MEDS ORDERED: SPIR25TA5 PO (09:13)
[2018-02-20] MEDS ORDERED: DULO20CA45 PO (09:13)
[2018-02-20] MEDS ORDERED: ASPI-496 PO (09:13)
[2018-02-20] MEDS ORDERED: POTA20PA25 PO (09:13)
[2018-02-20] MEDS ORDERED: CARV6.2512 PO (09:13)
[2018-02-20 11:10] LABS: ALBUMIN 2.8 g/dL (3.4-5.0); ANION GAP 5 mmol/L (5-15); CALCIUM 7.8 mg/dL (8.5-10.1); CHLORIDE 99 mmol/L (98-107)
[2018-02-20 11:15] LABS: ALANINE AMINOTRANSFERASE 23 U/L (12-78); ALKALINE PHOSPHATASE 125 U/L (45-117); BILIRUBIN,TOTAL 2.9 mg/dL (0.2-1.0); CREATININE 1.06 mg/dL (0.55-1.02); TOTAL PROTEIN 7.8 g/dL (6.4-8.2)
[2018-02-21] MEDS ORDERED: FUROSEMIDE 80 MG TABLET PO SCH (09:00)
== END 2018-02-20 12:18 | disposition home or self-care (01) | DRG 291 ==
LOC: ED 10:00 → 5SO 10:48 → UNDOADMIN 11:44 → DCLOUNGE 02-20 12:18
PROVIDERS: ADMIT Hospitalist; ATTEND Hospitalist
DX: I11.0 Hypertensive heart disease with heart failure (principal); J96.01 Acute respiratory failure with hypoxia; D68.9 Coagulation defect, unspecified; E44.1 Mild protein-calorie malnutrition; R18.8 Other ascites; D64.9 Anemia, unspecified; I50.43 Acute on chronic combined systolic (congestive) and diastolic (congestive) heart failure; I42.9 Cardiomyopathy, unspecified; Z68.27 Body mass index [BMI] 27.0-27.9, adult; E87.6 Hypokalemia; F17.200 Nicotine dependence, unspecified, uncomplicated; F41.1 Generalized anxiety disorder; I25.2 Old myocardial infarction; I27.20 Pulmonary hypertension, unspecified; I34.0 Nonrheumatic mitral (valve) insufficiency; Z90.49 Acquired absence of other specified parts of digestive tract; Z82.49 Family history of ischemic heart disease and other diseases of the circulatory system; Z91.14 Patient's other noncompliance with medication regimen; F15.10 Other stimulant abuse, uncomplicated; Z71.51 Drug abuse counseling and surveillance of drug abuser
CPT/HCPCS: 36415; 74022; 76700; 80053; 80307; 83690; 83735; 83880; 84443; 84484; 84703; 85025; 85610; 90656; 93005; 93306; 96374; 96375; 99291; G0378; J1644; J1940; J2405

== ENCOUNTER 2018-03-04 15:15 | Inpatient (IN) | payer MEDICAID ==
[~2018-03-04] VITALS: Ht 160 cm; Wt 70.1 kg
[~2018-03-04 15:15] MED LIST changes: +ASPI-496 PO; +CARV6.2512 PO; +DULO20CA45 PO; +LISI5TAB7 PO; +SPIR25TA5 PO
--- NOTE | 2018-03-04 15:32 | NUR ---
BIB [facility] AFTER CALLIING 911 FOR CP AND SOB X 3 DAYS. PT PRESENTED ANXIOUS AND STATED," I WANT MY MOMMY." PLACED IN GOWN AND PT REQUESTS TO USE COMMODE. SHE STATES "I HAVE TO [place]EN[place]G" REFERING TO BOWEL MOVEMENT.
[2018-03-04] MEDS ORDERED: ONDANSETRON 2MG/ML, 2ML ONE (15:56)
[2018-03-04] MEDS ORDERED: LORazepam 2 MG/ML, 1ML ONE (15:57)
[2018-03-04] MEDS ORDERED: ASPIRIN 81 MG TABLET CHEW ONE (15:57)
[2018-03-04] MEDS ORDERED: ONDANSETRON 2MG/ML, 2ML IVPush ONE (16:00)
[2018-03-04] MEDS ORDERED: LORazepam 2 MG/ML, 1ML IVPush ONE (16:00)
[2018-03-04] MEDS ORDERED: ASPIRIN 81 MG TABLET CHEW PO ONE (16:00)
[2018-03-04 16:32] LABS: ALANINE AMINOTRANSFERASE 42 U/L (12-78); ALBUMIN 2.7 g/dL (3.4-5.0); ALKALINE PHOSPHATASE 115 U/L (45-117); ANION GAP 17 mmol/L (5-15); BILIRUBIN,TOTAL 4.5 mg/dL (0.2-1.0); CALCIUM 8.2 mg/dL (8.5-10.1); CHLORIDE 109 mmol/L (98-107); CREATININE 1.19 mg/dL (0.55-1.02); TOTAL PROTEIN 7.3 g/dL (6.4-8.2); TROPONIN I 0.041 ng/mL (0.000-0.045)
[2018-03-04 16:34] LABS: MD YES; MEAN CORPUSCULAR HEMOGLOBIN 28.9 pg (27.0-34.8); MEAN CORPUSCULAR HGB CONC 31.1 g/dL (32.4-35.8); MEAN CORPUSCULAR VOLUME 93.1 fL (80-100); MEAN PLATELET VOLUME 12.1 fL (7.4-10.4); PLATELET COUNT 279 x10^3/uL (130-400); RED CELL DISTRIBUTION WIDTH 23.6 % (9.6-15.2)
[2018-03-04 16:37] LABS: ANISOCYTOSIS 2+; BAND#(MANUAL) 0.13 x10^3/uL; BANDS%(MANUAL) 2 % (0-7); LYMPH#(MANUAL) 2.01 x10^3/uL (1-3.4); LYMPHS% (MANUAL) 30 % (22-44); MICROCYTOSIS 1+; MONOS% (MANUAL) 9 % (2-9); SEG#(MANUAL) 3.95 x10^3/uL (1.8-6.8); SEGS% (MANUAL) 59 % (42-75)
[2018-03-04 16:38] LABS: <PLATELET ESTIMATE> ADEQUATE; LARGE PLATELETS 1+; OVALOCYTES 3+; POLYCHROMASIA 1+; SCHISTOCYTES 1+; TEAR DROPS 1+
[2018-03-04] MEDS ORDERED: DEXTROSE 50%, 50ML SYRINGE IVPush ONE (17:00)
[2018-03-04] MEDS ORDERED: INSULIN REGULAR 100 UNITS/ML, 3ML VIAL IVPush ONE (17:00)
[2018-03-04] MEDS ORDERED: DOCUSATE 100 MG CAPSULE PO PRN (17:30)
[2018-03-04] MEDS ORDERED: ACETAMINOPHEN 325 MG TABLET PO PRN (17:30)
[2018-03-04] MEDS ORDERED: hydrALAzine 20 MG/ML, 1ML IVPush PRN (17:30)
[2018-03-04] MEDS ORDERED: ONDANSETRON ODT 4 MG PO PRN (17:30)
[2018-03-04] MEDS ORDERED: BISACODYL 10 MG SUPP PR PRN (17:30)
[2018-03-04] MEDS ORDERED: ONDANSETRON 2MG/ML, 2ML IVPush PRN (17:30)
[2018-03-04 18:03] LABS: MICROSCOPIC INDICATED
[2018-03-04 18:08] LABS: O2 FLOW ROOM AIR L/min
[2018-03-04 18:11] LABS: CULTURE INDICATED? YES
--- NOTE | 2018-03-04 18:19 | NUR ---
PT RESPONSIVE TO VOICE AT THIS TIME. RECTAL TEMP 0F 91.6. JOSE GLASS BLANKET PROVIDED AND MADE AWARE.
[2018-03-04 18:24] LABS: TROPONIN I 0.028 ng/mL (0.000-0.045)
[2018-03-04 18:26] LABS: SALICYLATE LEVEL < 1.7 mg/dL (2.8-20.0)
[2018-03-04] MEDS ORDERED: CEFTRIAXONE PMX 1GM/50ML 50 ML IV ONE (18:30)
[2018-03-04] MEDS ORDERED: PROPOFOL 100 ML IV PRN (18:49)
[2018-03-04] MEDS ORDERED: SODIUM BICARBONATE 1 MEQ/ML, 50ML VIAL ONE (18:52)
[2018-03-04] MEDS ORDERED: ROCURONIUM 10 MG/ML,10ML IVPush ONE (19:00)
[2018-03-04] MEDS ORDERED: SODIUM BICARB 8.4%, 50ML SYRINGE IVPush ONE (19:00)
[2018-03-04] MEDS ORDERED: ETOMIDATE 20 MG/10 ML IVPush ONE (19:00)
--- NOTE | 2018-03-04 19:00 | NUR ---
RECEIVED REPORT FROM RAFAEL CARDENSA AT [facility]. PT TO BE INTUBATED. PT NOT VERBALLY RESPONSIVE BUT DOES RESPOND TO PAINFUL STIMULI. CORE TEMP WAS 91.6 RECTALLY. BEAR HUGGER PLACED ON PATIENT.
[2018-03-04] MEDS ORDERED: INSULIN REGULAR 100 UNITS/ML, 3ML VIAL ONE (19:02)
[2018-03-04] MEDS ORDERED: CEFTRIAXONE PMX 1GM/50ML 50 ML ONE (19:04)
[2018-03-04] MEDS ORDERED: ROCURONIUM 10 MG/ML,10ML ONE (19:04)
[2018-03-04] MEDS ORDERED: DEXTROSE 50%, 50ML SYRINGE ONE (19:06)
--- NOTE | 2018-03-04 19:17 | NUR ---
PT INTUBATED WITH 7.5 ET TUBE, 24 AT THE LIP. BREATH SOUNDS EQUAL BILATERALLY.
--- NOTE | 2018-03-04 19:20 | NUR ---
VENT SETTINGS OF PEEP OF 5, TIDAL VOLUME OF 500, AND RR OF 26.
[2018-03-04] MEDS ORDERED: FUROSEMIDE 40 MG/4 ML ONE (19:53)
--- NOTE | 2018-03-04 19:55 | NUR ---
RT AT BEDSIDE. PT PULSE OX FLUCTUATING IN THE MID 80'S TO LOW 90'S WITH PO2 OVER 200.
[2018-03-04] MEDS: FUROSEMIDE 40 MG/4 ML IV SCH (20:00)
--- NOTE | 2018-03-04 20:06 | NUR ---
DR. GARCIA AT BEDSIDE FOR ADMIT.
[2018-03-04] MEDS ORDERED: LIDOCAINE-MPF 1%, 5ML ONE (20:19)
--- NOTE | 2018-03-04 20:28 | NUR ---
RADIOLOGIST AT BEDSIDE FOR PARACENTESIS.
[2018-03-04] MEDS: CEFTRIAXONE PMX 1GM/50ML 50 ML IV SCH (20:32)
--- NOTE | 2018-03-04 20:41 | NUR ---
RT CALLED FOR TRANSPORT FOR CT. PARACENTESIS DONE BY DR. ALCARAZ. LAB AT BEDSIDE FOR LACTATE REQUESTED OF DR. CASTILLO.
--- NOTE | 2018-03-04 20:50 | NUR ---
AT BEDSIDE AND UPDATED ON POC. LEFT TO CALL MOTHER.
[2018-03-04] MEDS ORDERED: LIDOCAINE-MPF 1%, 2ML ENDO PRN (21:00)
[2018-03-04] MEDS ORDERED: PHARMACY MAY ADJ FOR RENAL FX MC SCH (21:00)
--- NOTE | 2018-03-04 21:09 | NUR ---
PT TO AND FROM CT. LAB AT BEDSIDE FOR STAT TROP.
--- NOTE | 2018-03-04 21:13 | NUR ---
RT AT BEDSIDE TO LOWER HER OXYGEN PERCENT TO 70%.
--- NOTE | 2018-03-04 21:31 | NUR ---
PT HAS TWO BELONGINGS BAGS CONSITING OF A PURSE, BOOTS AND CLOTHES AT BEDSIDE. SPOKE TO JAYLAN, NEXT OF KIN LISTED FOR PT AND MOTHER, AND ASSURED JAYLAN WE WOULD NOTIFY HER OF ANY CHANGE IN HER CONDITION WHEN POSSIBLE AND ANY NEW DEVELOPMENT. JAYLAN VERBALIZED UNDERSTANDING.
[2018-03-04 21:34] LABS: TRIGLYCERIDES 54 mg/dL (50-200)
--- NOTE | 2018-03-04 21:37 | NUR ---
SPOKE TO [facility] IN CHEMISTRY AND LACTIC ACID IS TO BE REDRAWN DUE TO INSUFFICIENT QUANTITY OF SPECIMEN AND QUESTIONABLE RESULTS.
[2018-03-04] MEDS ORDERED: HEPARIN 5,000 UNITS/ML, 1ML ONE (21:44)
[2018-03-04] MEDS ORDERED: CARVEDILOL 3.125 MG TABLET ONE (21:44)
[2018-03-04] MEDS ORDERED: FAMOTIDINE 20 MG/2 ML ONE (21:45)
[2018-03-04] MEDS: FAMOTIDINE 20 MG/2 ML IV SCH (21:47)
[2018-03-04] MEDS: HEPARIN 5,000 UNITS/ML, 1ML SQ SCH (22:04)
--- NOTE | 2018-03-04 22:05 | NUR ---
REPORT TO ALEJO Truong RN AT BEDSIDE. PT 'S COUSIN MATT AT BEDSIDE.
--- NOTE | 2018-03-04 22:06 | NUR ---
received report from RONALD Bernardo.
[2018-03-04] MEDS: CARVEDILOL 6.25 MG TABLET PO SCH (22:16)
--- NOTE | 2018-03-04 22:45 | NUR ---
report to RONALD Kuo, patient transported to CCU
[2018-03-05] MEDS: PROPOFOL 100 ML IV PRN ×2 (00:38→05:43)
[2018-03-05 02:37] LABS: AMPHETAMINE SCREEN, URINE Positive (Negative); BARBITURATE SCREEN, URINE Negative (Negative); BENZODIAZEPINE SCREEN, URINE Negative (Negative); CANNABINOID SCREEN, URINE Negative (Negative); COCAINE SCREEN, URINE Negative (Negative); METHADONE SCREEN, URINE Negative (Negative); OPIATE SCREEN, URINE Negative (Negative)
[2018-03-05] MEDS ORDERED: ZIPRASIDONE 20 MG INJ IM ONE ×2 (04:00)
[2018-03-05 04:19] LABS: OSMOLALITY,URINE 327 mOsm/kg (500-850)
[2018-03-05 04:33] VITALS: BP 107/65
[2018-03-05] MEDS: HEPARIN 5,000 UNITS/ML, 1ML SQ SCH ×2 (04:48→13:05)
[2018-03-05 04:53] LABS: ALBUMIN 2.7 g/dL (3.4-5.0); ANION GAP 12 mmol/L (5-15); CALCIUM 9.1 mg/dL (8.5-10.1); CHLORIDE 105 mmol/L (98-107)
[2018-03-05 04:57] LABS: ALANINE AMINOTRANSFERASE 44 U/L (12-78); ALKALINE PHOSPHATASE 106 U/L (45-117); BILIRUBIN,TOTAL 5.1 mg/dL (0.2-1.0); CREATININE 1.27 mg/dL (0.55-1.02); TOTAL PROTEIN 6.7 g/dL (6.4-8.2)
[2018-03-05 07:27] LABS: MEAN CORPUSCULAR HEMOGLOBIN 28.4 pg (27.0-34.8); MEAN CORPUSCULAR HGB CONC 32.4 g/dL (32.4-35.8); MEAN CORPUSCULAR VOLUME 87.7 fL (80-100); RED BLOOD COUNT 3.45 x10^6/uL (3.82-5.3)
[2018-03-05 08:35] LABS: MEAN PLATELET VOLUME 9.3 fL (7.4-10.4); PLATELET COUNT 148 x10^3/uL (130-400); RED CELL DISTRIBUTION WIDTH 22.9 % (9.6-15.2)
[2018-03-05 08:38] LABS: MD MORPH REVIEW ONLY
[2018-03-05 08:39] LABS: BASOPHILS # (AUTO) 0.13 x10^3/uL (0-0.1); BASOPHILS % (AUTO) 2 % (0-1); EOSINOPHILS % (AUTO) 0 % (1-7); LYMPHOCYTES # (AUTO) 1.01 x10^3/uL (1-3.4); LYMPHOCYTES % (AUTO) 12 % (22-44); MONOCYTES # (AUTO) 0.49 x10^3/uL (0.2-0.8); MONOCYTES % (AUTO) 6 % (2-9); NEUTROPHILS # (AUTO) 7.11 x10^3/uL (1.8-6.8); NEUTROPHILS % (AUTO) 81 % (42-75)
[2018-03-05 08:40] LABS: <PLATELET ESTIMATE> ADEQUATE; ANISOCYTOSIS 2+; LARGE PLATELETS 1+; OVALOCYTES 3+; POLYCHROMASIA 1+; SCHISTOCYTES 1+
[2018-03-05] MEDS ORDERED: VECURONIUM 10 MG ONE (08:51)
[2018-03-05] MEDS ORDERED: ASPIRIN 81 MG TABLET EC PO SCH (09:00)
[2018-03-05] MEDS ORDERED: FUROSEMIDE 40 MG TABLET PO SCH (09:00)
[2018-03-05] MEDS: DULOXETINE 20 MG CAPSULE.DR PO SCH (09:00)
[2018-03-05] MEDS ORDERED: ASPIRIN 81 MG TABLET CHEW ONE (10:45)
[2018-03-05] MEDS: FAMOTIDINE 20 MG/2 ML IV SCH ×2 (10:54→20:42)
[2018-03-05] MEDS: SPIRONOLACTONE 25 MG TABLET PO SCH (10:54)
[2018-03-05] MEDS: FUROSEMIDE 40 MG/4 ML IV SCH (10:54)
[2018-03-05] MEDS: SENNA/DOCUSATE TABLET PO SCH (10:54)
[2018-03-05] MEDS: LISINOPRIL 5 MG TABLET PO SCH (10:55)
[2018-03-05] MEDS: CARVEDILOL 6.25 MG TABLET PO SCH ×2 (10:56→20:42)
[2018-03-05] MEDS ORDERED: VECURONIUM 10 MG IVPush ONE (11:00)
[2018-03-05] MEDS ORDERED: ROCURONIUM 10 MG/ML,10ML IVPush ONE (11:00)
[2018-03-05] MEDS ORDERED: GADOBUTROL 7.5 MMOL/7.5 ML VIAL ONE (12:27)
[2018-03-05] MEDS: CEFTRIAXONE PMX 1GM/50ML 50 ML IV SCH (18:01)
[2018-03-06] MEDS: PROPOFOL 100 ML IV PRN ×2 (00:58→06:06)
[2018-03-06] MEDS ORDERED: MIDAZOLAM 1 MG/ML, 2ML IVPush ONE (03:00)
[2018-03-06] MEDS ORDERED: VECURONIUM 10 MG IVPush ONE (03:00)
[2018-03-06 04:00] VITALS: BP 108/76
[2018-03-06 04:51] LABS: ANION GAP 7 mmol/L (5-15); CALCIUM 7.8 mg/dL (8.5-10.1); CHLORIDE 107 mmol/L (98-107); CREATININE 1.28 mg/dL (0.55-1.02)
[2018-03-06 04:52] LABS: ALANINE AMINOTRANSFERASE 58 U/L (12-78)
[2018-03-06 04:54] LABS: ALKALINE PHOSPHATASE 98 U/L (45-117); BILIRUBIN,TOTAL 4.5 mg/dL (0.2-1.0); TOTAL PROTEIN 6.1 g/dL (6.4-8.2)
[2018-03-06 05:18] LABS: MEAN CORPUSCULAR HEMOGLOBIN 29.5 pg (27.0-34.8); MEAN CORPUSCULAR VOLUME 86.8 fL (80-100); MEAN PLATELET VOLUME 9.5 fL (7.4-10.4); PLATELET COUNT 76 x10^3/uL (130-400); RED BLOOD COUNT 3.62 x10^6/uL (3.82-5.3); RED CELL DISTRIBUTION WIDTH 23.3 % (9.6-15.2)
[2018-03-06 05:19] LABS: BASOPHILS # (AUTO) 0.02 x10^3/uL (0-0.1); BASOPHILS % (AUTO) 0 % (0-1); EOSINOPHILS # (AUTO) 0.01 x10^3/uL (0-0.4); EOSINOPHILS % (AUTO) 0 % (1-7); LYMPHOCYTES # (AUTO) 1.11 x10^3/uL (1-3.4); LYMPHOCYTES % (AUTO) 14 % (22-44); MONOCYTES # (AUTO) 0.52 x10^3/uL (0.2-0.8); MONOCYTES % (AUTO) 7 % (2-9); NEUTROPHILS # (AUTO) 6.31 x10^3/uL (1.8-6.8); NEUTROPHILS % (AUTO) 79 % (42-75)
[2018-03-06 05:20] LABS: ANISOCYTOSIS 2+; MD MORPH REVIEW ONLY; OVALOCYTES 3+; POLYCHROMASIA 1+; SCHISTOCYTES 1+; TEAR DROPS 1+
[2018-03-06 05:21] LABS: <PLATELET ESTIMATE> DECREASED; LARGE PLATELETS 1+
[2018-03-06] MEDS ORDERED: MAGNESIUM SULFATE 4 GM in SODIUM CHLORIDE 0.9% 100 ML IV ONE (08:00)
[2018-03-06] MEDS ORDERED: MAGNESIUM SULFATE PMX 4GM/100M 100 ML IVPB ONE (08:30)
[2018-03-06] MEDS: DULOXETINE 20 MG CAPSULE.DR PO SCH (08:44)
[2018-03-06] MEDS: SENNA/DOCUSATE TABLET PO SCH (08:44)
[2018-03-06] MEDS: SPIRONOLACTONE 25 MG TABLET PO SCH (08:44)
[2018-03-06] MEDS: LISINOPRIL 5 MG TABLET PO SCH (08:44)
[2018-03-06] MEDS: CARVEDILOL 6.25 MG TABLET PO SCH ×2 (08:44→20:06)
[2018-03-06] MEDS: FAMOTIDINE 20 MG/2 ML IV SCH (08:45)
[2018-03-06] MEDS ORDERED: ASPIRIN 81 MG TABLET CHEW PO SCH (09:00)
[2018-03-06 10:07] LABS: HIT RESULT NEGATIVE (NEGATIVE)
[2018-03-06] MEDS: NICOTINE 14MG/24 HR PATCH.TD24 TD SCH (10:49)
[2018-03-06 15:07] VITALS: BP 95/65
[2018-03-06 16:03] VITALS: BP 97/71
[2018-03-06 19:39] VITALS: BP 109/74
[2018-03-07 04:45] VITALS: BP 103/71
[2018-03-07 06:10] LABS: CHLORIDE 107 mmol/L (98-107)
[2018-03-07 06:18] LABS: ANION GAP 7 mmol/L (5-15); CALCIUM 7.7 mg/dL (8.5-10.1); CREATININE 1.08 mg/dL (0.55-1.02); TRIGLYCERIDES 95 mg/dL (50-200)
[2018-03-07 06:22] LABS: MEAN CORPUSCULAR HEMOGLOBIN 29.1 pg (27.0-34.8); MEAN CORPUSCULAR HGB CONC 33.2 g/dL (32.4-35.8); MEAN CORPUSCULAR VOLUME 87.8 fL (80-100); MEAN PLATELET VOLUME 9.3 fL (7.4-10.4); PLATELET COUNT 127 x10^3/uL (130-400); RED BLOOD COUNT 3.65 x10^6/uL (3.82-5.3); RED CELL DISTRIBUTION WIDTH 24.5 % (9.6-15.2)
[2018-03-07] MEDS ORDERED: CEFTRIAXONE PMX 1GM/50ML 50 ML IV SCH (07:00)
[2018-03-07 07:19] LABS: MD YES
[2018-03-07 07:27] LABS: BAND#(MANUAL) 0.18 x10^3/uL; BANDS%(MANUAL) 3 % (0-7); EOS#(MANUAL) 0.24 x10^3/uL (0.0-0.4); EOS% (MANUAL) 4 % (1-7); LYMPH#(MANUAL) 1.59 x10^3/uL (1-3.4); LYMPHS% (MANUAL) 27 % (22-44); NRBC % (MANUAL) 1 % (0-1); SEG#(MANUAL) 3.89 x10^3/uL (1.8-6.8); SEGS% (MANUAL) 66 % (42-75)
[2018-03-07 07:28] LABS: ANISOCYTOSIS 2+; OVALOCYTES 3+; POLYCHROMASIA 1+; SCHISTOCYTES 1+; TEAR DROPS 1+
[2018-03-07 07:29] LABS: <PLATELET ESTIMATE> DECREASED; LARGE PLATELETS 1+
[2018-03-07 07:37] VITALS: BP 109/74
[2018-03-07] MEDS: SENNA/DOCUSATE TABLET PO SCH (08:49)
[2018-03-07] MEDS: POTASSIUM CHLORIDE 20 MEQ TAB.ER.PRT PO SCH ×2 (08:49→17:36)
[2018-03-07] MEDS: LISINOPRIL 5 MG TABLET PO SCH (08:50)
[2018-03-07] MEDS: CARVEDILOL 6.25 MG TABLET PO SCH ×2 (08:50→20:41)
[2018-03-07] MEDS: FUROSEMIDE 40 MG TABLET PO SCH ×2 (08:50→17:36)
[2018-03-07] MEDS: SPIRONOLACTONE 25 MG TABLET PO SCH (08:50)
[2018-03-07] MEDS: DULOXETINE 20 MG CAPSULE.DR PO SCH (08:51)
[2018-03-07] MEDS: NICOTINE 14MG/24 HR PATCH.TD24 TD SCH (10:48)
[2018-03-07 16:45] VITALS: BP 103/72
[2018-03-07 20:17] VITALS: BP 93/60
[2018-03-08 02:49] VITALS: BP 108/72
[2018-03-08 06:00] LABS: CHLORIDE 106 mmol/L (98-107)
[2018-03-08 06:12] LABS: ALANINE AMINOTRANSFERASE 51 U/L (12-78); ALBUMIN 2.3 g/dL (3.4-5.0); ALKALINE PHOSPHATASE 98 U/L (45-117); ANION GAP 7 mmol/L (5-15); BILIRUBIN,TOTAL 2.4 mg/dL (0.2-1.0); CALCIUM 7.4 mg/dL (8.5-10.1); CREATININE 0.89 mg/dL (0.55-1.02); TOTAL PROTEIN 6.5 g/dL (6.4-8.2)
[2018-03-08 06:20] LABS: <PLATELET ESTIMATE> DECREASED; ANISOCYTOSIS 2+; BASOPHILS # (AUTO) 0.05 x10^3/uL (0-0.1); BASOPHILS % (AUTO) 1 % (0-1); EOSINOPHILS # (AUTO) 0.05 x10^3/uL (0-0.4); EOSINOPHILS % (AUTO) 1 % (1-7); LARGE PLATELETS 1+; LYMPHOCYTES # (AUTO) 1.22 x10^3/uL (1-3.4); LYMPHOCYTES % (AUTO) 22 % (22-44); MD MORPH REVIEW ONLY; MEAN CORPUSCULAR HEMOGLOBIN 28.4 pg (27.0-34.8); MEAN CORPUSCULAR HGB CONC 32.2 g/dL (32.4-35.8); MEAN CORPUSCULAR VOLUME 88.1 fL (80-100); MEAN PLATELET VOLUME 9.2 fL (7.4-10.4); MONOCYTES # (AUTO) 0.55 x10^3/uL (0.2-0.8); MONOCYTES % (AUTO) 10 % (2-9); NEUTROPHILS # (AUTO) 3.69 x10^3/uL (1.8-6.8); NEUTROPHILS % (AUTO) 67 % (42-75); OVALOCYTES 3+; PLATELET COUNT 120 x10^3/uL (130-400); POLYCHROMASIA 1+; RED BLOOD COUNT 3.66 x10^6/uL (3.82-5.3); RED CELL DISTRIBUTION WIDTH 23.5 % (9.6-15.2); SCHISTOCYTES 1+; TEAR DROPS 1+
[2018-03-08 07:29] VITALS: BP 103/79
[2018-03-08] MEDS: SENNA/DOCUSATE TABLET PO SCH (08:48)
[2018-03-08] MEDS: LISINOPRIL 5 MG TABLET PO SCH (08:48)
[2018-03-08] MEDS: SPIRONOLACTONE 25 MG TABLET PO SCH (08:48)
[2018-03-08] MEDS: FUROSEMIDE 40 MG TABLET PO SCH (08:49)
[2018-03-08] MEDS: POTASSIUM CHLORIDE 20 MEQ TAB.ER.PRT PO SCH (08:49)
[2018-03-08] MEDS: DULOXETINE 20 MG CAPSULE.DR PO SCH (08:49)
[2018-03-08] MEDS: CARVEDILOL 6.25 MG TABLET PO SCH (08:49)
[2018-03-08] MEDS: NICOTINE 14MG/24 HR PATCH.TD24 TD SCH (08:50)
[2018-03-08] MEDS ORDERED: MAGNESIUM OXIDE 400 MG TABLET PO SCH (11:00)
[2018-03-08] MEDS ORDERED: MAGN400T50 PO (13:09)
[2018-03-08 13:12] VITALS: BP 107/79
[2018-03-08 16:01] LABS: MICROSCOPIC NOT IND
[2018-03-08 16:12] LABS: CULTURE INDICATED? NO
== END 2018-03-08 17:21 | disposition home or self-care (01) | DRG 208 ==
LOC: ED 16:09 → INTOOBSV 16:51 → EDIP 16:51 → 5SO 17:31 → EDIP 17:31 → OBSVTOIN 19:21 → CCU 22:47 → 4EST 03-06 14:58
PROVIDERS: ADMIT Hospitalist; ATTEND Hospitalist
PROC: 0BH17EZ Insertion of Endotracheal Airway into Trachea, Via Natural or Artificial Opening (ICD-10-PCS; principal; 2018-03-04)
PROC: 5A1945Z Respiratory Ventilation, 24-96 Consecutive Hours (ICD-10-PCS; 2018-03-04)
PROC: 0W9G3ZZ Drainage of Peritoneal Cavity, Percutaneous Approach (ICD-10-PCS; 2018-03-04)
DX: J96.00 Acute respiratory failure, unspecified whether with hypoxia or hypercapnia (principal); N17.0 Acute kidney failure with tubular necrosis; Z99.11 Dependence on respirator [ventilator] status; R17 Unspecified jaundice; I50.42 Chronic combined systolic (congestive) and diastolic (congestive) heart failure; E87.2 Acidosis; G93.40 Encephalopathy, unspecified; I31.3 Pericardial effusion (noninflammatory); F15.129 Other stimulant abuse with intoxication, unspecified; I11.0 Hypertensive heart disease with heart failure; E23.6 Other disorders of pituitary gland; M79.671 Pain in right foot; E87.5 Hyperkalemia; F12.90 Cannabis use, unspecified, uncomplicated; F17.210 Nicotine dependence, cigarettes, uncomplicated; M79.672 Pain in left foot; E66.9 Obesity, unspecified; Z98.51 Tubal ligation status; Z90.721 Acquired absence of ovaries, unilateral; Z90.49 Acquired absence of other specified parts of digestive tract; Z91.14 Patient's other noncompliance with medication regimen; Z68.27 Body mass index [BMI] 27.0-27.9, adult; I25.2 Old myocardial infarction; Z82.49 Family history of ischemic heart disease and other diseases of the circulatory system; Z86.73 Personal history of transient ischemic attack (TIA), and cerebral infarction without residual deficits
CPT/HCPCS: 31500; 36415; 36600; 51702; 82024; 82042; 82945; 99291; J3490; 49083; 70450; 70553; 71045; 80048; 80053; 80307; 80329; 81001; 81003; 82140; 82248; 82803; 83001; 83002; 83003; 83605; 83615; 83690; 83735; 83880; 83935; 84100; 84146; 84443; 84478; 84484; 84703; 85025; 86022; 87040; 87070; 87075; 87081; 87086; 87205; 88112; 88305; 89051; 93005; 94002; 94003; 94150; 96374; 96375; A9585; G0378; J0696; J1644; J1940; J2405; J2704; J3486; G0480; J2060; J3475; J7512

== ENCOUNTER 2018-04-19 02:18 | Emergency (ER) | payer MEDICAID ==
[~2018-04-19] VITALS: Ht 162.6 cm; Wt 69.0 kg
[~2018-04-19 02:18] MED LIST changes: +MAGN400T50 PO
--- NOTE | 2018-04-19 02:45 | NUR ---
PT BIB [facility] FOR VAGINAL PAIN,ITCHING AND DISCHARGE. PT IS VERY UPSET. PT HAS HAD SYMPTOMS FOR 2 WEEKS. VSS. CALL LIGHT IN REACH
[2018-04-19] MEDS ORDERED: LORazepam 1MG TABLET PO ONE (03:00)
[2018-04-19] MEDS ORDERED: LORazepam 1MG TABLET ONE (03:12)
--- NOTE | 2018-04-19 03:17 | NUR ---
PELVIC CART SET UP. PT MEDICATED WITH ATIVAN BECAUSE SHE IS VERY ANXIOUS. PT AWARE THAT UA IS NEEDED
[2018-04-19 03:44] LABS: CLUE CELLS NONE SEEN (NONE SEEN); WET PREP WBCS MODERATE (FEW)
[2018-04-19] MEDS ORDERED: CEFTRIAXONE 250 MG IM ONE (04:00)
[2018-04-19] MEDS ORDERED: AZITHROMYCIN 250 MG TABLET PO ONE (04:00)
[2018-04-19 04:40] VITALS: BP 110/79
[2018-04-19 04:48] LABS: HCG UR SG 1.024 (1.003-1.030)
[2018-04-19 04:49] LABS: CULTURE INDICATED? YES; MICROSCOPIC INDICATED
[2018-04-19] MEDS ORDERED: CEFTRIAXONE 250 MG ONE (04:55)
[2018-04-19] MEDS ORDERED: AZITHROMYCIN 250 MG TABLET ONE (04:55)
--- NOTE | 2018-04-19 05:05 | NUR ---
PT MEDICATED. PT WAITING FOR LAB RESULTS. CALL LIGHT IN REACH
--- NOTE | 2018-04-19 06:14 | NUR ---
Patient given discharge instructions and they have confirmed that they understand the instructions. Patient ambulatory with steady gait.
== END 2018-04-19 06:28 | disposition home or self-care (01) ==
LOC: ED 02:59
DX: A64 Unspecified sexually transmitted disease (principal); N89.8 Other specified noninflammatory disorders of vagina; I25.2 Old myocardial infarction; I50.9 Heart failure, unspecified; I11.0 Hypertensive heart disease with heart failure
CPT/HCPCS: 81001; 81025; 87086; 87210; 87491; 87591; 87808; 96372; 99283; J0696

== ENCOUNTER 2018-05-18 07:31 | Emergency (ER) | payer MEDICAID ==
[~2018-05-18] VITALS: Ht 162.6 cm; Wt 68.2 kg
--- NOTE | 2018-05-18 08:02 | NUR ---
Pt states "I have a parasite in my body" c/o diffuse pain and rash all over body x1 year. Reports hx of cigarette use, meth (smokes-last 2 days ago), marijuana. Sclera jaundiced, multiple superficial ulcers in various stages on healing to bilateral lower legs (nothing open or discolored). Reports ulcers itch quite bad. hx of cardiac disease which she is compliant with her medications. Alan psych hx. hr 100, 105/69
[2018-05-18 08:36] VITALS: BP 110/70
[2018-05-18] MEDS ORDERED: hydrOXyzine 50MG TABLET ONE (08:49)
--- NOTE | 2018-05-18 09:18 | NUR ---
VITALSREMAIN STABLE (INCLUDING ORTHOSTATICS), UP TO RESTROOM. NO ABNORMALITY W/ GAIT. URINE COLLECTED AT 912A-AWAITING ORDERS. RESTING IN BED W/ CALL ALLEN IN HAND. WILL CONTINUE TO MONITOR
[2018-05-18 09:29] LABS: MEAN CORPUSCULAR HEMOGLOBIN 28.2 pg (27.0-34.8); MEAN CORPUSCULAR HGB CONC 31.5 g/dL (32.4-35.8); MEAN CORPUSCULAR VOLUME 89.7 fL (80-100); MEAN PLATELET VOLUME 10.6 fL (7.4-10.4); PLATELET COUNT 325 x10^3/uL (130-400); RED BLOOD COUNT 3.69 x10^6/uL (3.82-5.3); RED CELL DISTRIBUTION WIDTH 22.6 % (9.6-15.2)
[2018-05-18 09:33] LABS: ALANINE AMINOTRANSFERASE 25 U/L (12-78); ALBUMIN 2.9 g/dL (3.4-5.0); ANION GAP 7 mmol/L (5-15); CALCIUM 8.3 mg/dL (8.5-10.1); CHLORIDE 106 mmol/L (98-107); CREATININE 1.01 mg/dL (0.55-1.02)
[2018-05-18 09:35] LABS: ALKALINE PHOSPHATASE 156 U/L (45-117); BILIRUBIN,TOTAL 2.9 mg/dL (0.2-1.0); TOTAL PROTEIN 7.8 g/dL (6.4-8.2)
--- NOTE | 2018-05-18 10:05 | NUR ---
PATIENT REPORTS ITCHIN IMPROVED AFTER MEDICATION. ASKING CHERYLE A CHANGE OF CLOTHES AND THE PROVIDER SHE WANT "TESTS TO MAKE SURE I DON'T HAVE A PARASITE." PROVIDER TO BEDSIDE TO EXPLAIN POC
[2018-05-18 10:26] LABS: ANISOCYTOSIS 1+; BASOPHILS # (AUTO) 0.03 x10^3/uL (0-0.1); BASOPHILS % (AUTO) 1 % (0-1); EOSINOPHILS % (AUTO) 0 % (1-7); HYPOCHROMIA 1+; LYMPHOCYTES # (AUTO) 1.12 x10^3/uL (1-3.4); LYMPHOCYTES % (AUTO) 19 % (22-44); MD MORPH REVIEW ONLY; MONOCYTES # (AUTO) 0.37 x10^3/uL (0.2-0.8); MONOCYTES % (AUTO) 6 % (2-9); NEUTROPHILS # (AUTO) 4.25 x10^3/uL (1.8-6.8); NEUTROPHILS % (AUTO) 74 % (42-75); OVALOCYTES 3+; POLYCHROMASIA 1+; TEAR DROPS 1+
[2018-05-18 10:27] LABS: SCHISTOCYTES 1+
[2018-05-18 10:28] LABS: <PLATELET ESTIMATE> ADEQUATE; LARGE PLATELETS 1+
== END 2018-05-18 10:47 | disposition home or self-care (01) ==
LOC: ED 09:14
DX: I42.0 Dilated cardiomyopathy (principal); F17.210 Nicotine dependence, cigarettes, uncomplicated; I25.2 Old myocardial infarction; I50.9 Heart failure, unspecified; I11.0 Hypertensive heart disease with heart failure
CPT/HCPCS: 36415; 70450; 71045; 80053; 85025; 99284; Q0177